=== PATIENT | male | born 1990 | race Caucasian/White ===

== ENCOUNTER 2019-06-24 17:56 | Emergency (ER) | payer SELFPAY ==
[2019-06-24] MEDS ORDERED: Azithromycin 250 MG Tab PO ONE (18:38)
[2019-06-24 18:40] VITALS: BP 140/84; PULSE 92
--- NOTE | 2019-06-24 18:40 | EDM.PDOC ---
ED HPI GENERAL MEDICAL PROBLEM - General Chief Complaint: ENT Problem Stated Complaint: SOre THROAT Time Seen by Provider: 06/24/19 18:18 Source of Information: Reports: Patient History Limitations: Reports: No Limitations - History of Present Illness INITIAL COMMENTS - FREE TEXT/NARRATIVE: Patient reports sore throat for the last several day. No cough. Febrile with chills. NO other complaints. Childhood murmur. Onset Date: 06/22/19 Duration: Getting Worse, Intermittent Quality: Reports: Sharp, Stabbing Severity: Moderate Improves with: Reports: None Worsens with: Reports: None Associated Symptoms: Reports: No Other Symptoms - Related Data Allergies Allergy/AdvReac Type Severity Reaction Status Date / Time codeine Allergy Rash Verified 06/24/19 18:36 Home Meds: Home Meds . [No Known Home Meds] 09/12/15 [History] Past Medical History - Past Health History Medical/Surgical History: Denies Medical/Surgical History Other Musculoskeletal History: fracture right elbow 2008 Social & Family History - Family History Family Medical History: Noncontributory ED ROS ENT - Review of Systems Review Of Systems: See Below Constitutional: Reports: Fever, Chills HEENT: Reports: Throat Pain Respiratory: Reports: No Symptoms Cardiovascular: Reports: No Symptoms Endocrine: Reports: No Symptoms GI/Abdominal: Reports: No Symptoms : Reports: No Symptoms Musculoskeletal: Reports: No Symptoms Skin: Reports: No Symptoms Neurological: Reports: No Symptoms Psychiatric: Reports: No Symptoms Hematologic/Lymphatic: Reports: No Symptoms Immunologic: Reports: No Symptoms ED EXAM, ENT - Physical Exam Exam: See Below Exam Limited By: No Limitations General Appearance: Alert, WD/WN, No Apparent Distress Ears: Normal External Exam, Normal Canal, Hearing Grossly Normal, Normal TMs Nose: Normal Inspection, Normal Mucousa, No Blood Mouth/Throat: Normal Inspection, Normal Gums, Normal Lips, Tonsillar Erythema, Tonsillar Exudates, Tonsillar Swelling Head: Atraumatic, Normocephalic Neck: Lymphadenopathy (L), Lymphadenopathy (R) Respiratory/Chest: No Respiratory Distress, Lungs Clear, Normal Breath Sounds, No Accessory Muscle Use, Chest Non-Tender Cardiovascular: Normal Peripheral Pulses, Regular Rate, Rhythm, No Edema, No Gallop, No JVD, No Rub, Systolic Murmur Neurological: Alert, Oriented, CN II-XII Intact, Normal Cognition, Normal Gait, Normal Reflexes, No Motor/Sensory Deficits Course - Re-Assessments/Exams Free Text/Narrative Re-Assessment/Exam: 06/24/19 18:48 Rapid strep positive Departure - Departure Time of Disposition: 18:45 Disposition: Home, Self-Care 01 Condition: Good Clinical Impression: Strep pharyngitis - Discharge Information *PRESCRIPTION DRUG MONITORING PROGRAM REVIEWED*: Not Applicable *COPY OF PRESCRIPTION DRUG MONITORING REPORT IN PATIENT CECE: Not Applicable Instructions: Strep Throat, [id number], Azithromycin tablets Forms: ED Department Discharge Additional Instructions: Plan 1. Stay well hydrated 2. Take all of the azithromycin 3. Follow up with primary care in 7 days to be sure infection is cleared 4. Please call with any questions or concerns - Problem List & Annotations (1) Strep pharyngitis SNOMED Code(s): 84954197 Code(s): J02.0 - STREPTOCOCCAL PHARYNGITIS Status: Acute Priority: Medium Current Visit: Yes - Problem List Review Problem List Initiated/Reviewed/Updated: Yes - Assessment/Plan Assessment:: Strep throat Plan: Plan 1. Stay well hydrated 2. Take all of the azithromycin 3. Follow up with primary care in 7 days to be sure infection is cleared 4. Please call with any questions or concerns
== END 2019-06-24 18:45 | disposition home or self-care (01) ==
LOC: VM.ED 17:56
DX: J02.0 Streptococcal pharyngitis (principal); Z88.5 Allergy status to narcotic agent
CPT/HCPCS: 87880; 99283; A9270; 99282-GF

== ENCOUNTER 2022-01-15 23:50 | Emergency (ER) | payer OTHER, MEDICAID ==
[2022-01-16 03:38] VITALS: BP 140/79; PULSE 84
== END 2022-01-16 01:30 | disposition home or self-care (01) ==
LOC: VM.ED 23:50
DX: S67.191A Crushing injury of left index finger, initial encounter (principal); Z88.5 Allergy status to narcotic agent; W23.0XXA Caught, crushed, jammed, or pinched between moving objects, initial encounter; Y99.0 Civilian activity done for income or pay
CPT/HCPCS: 73140-F1; 99283